=== PATIENT | male | born 1990 | race African-American/Black ===

== ENCOUNTER 2016-09-05 18:43 | Emergency (ER) | payer SELFPAY ==
[~2016-09-05] VITALS: Ht 177.8 cm; Wt 75.0 kg
[2016-09-05 18:45] VITALS: BP 113/76; PULSE 74; RESP 16; TEMP 98.2; O2SAT 98
--- NOTE | 2016-09-05 19:16 | PD ---
HPI Chief Complaint: Skin Problem Time Seen by Provider: 19:12 Travel History International Travel<30 days: No Contact w/Intl Traveler<30days: No Traveled to known affect area: No History of Present Illness HPI 26-year-old black male presents to emergency department with a laceration to his left elbow which occurred prior to arrival. He states he had slipped and cut it on a piece of glass. He is up-to-date with immunizations. Pain is minimal. He denies any numbness, tingling or focal weakness. PFSH Past Medical History Medical History: Denies Significant Hx Diminished Hearing: No Tetanus Vaccination: < 5 Years Past Surgical History Surgical History: No Previous Surgery Social History Alcohol Use: No Tobacco Use: Yes Substance Use: No Allergies-Medications (Allergen,Severity, Reaction): Coded Allergies: No Known Allergies (Verified , 09/16/13) Reported Meds & Prescriptions Reported Meds & Active Scripts Active No Active Prescriptions or Reported Medications Review of Systems Except as stated in HPI: all other systems reviewed are Neg Physical Exam Narrative GENERAL: This is a well-nourished, well-developed patient, in no apparent distress. SKIN: No rashes, ecchymoses or lesions. Warm and dry. Patient has a 2 cm laceration to the left medial elbow. This is superficial in nature. Positive venous bleeding. No foreign body. HEAD: Atraumatic. Normocephalic. EYES: PERRL, EOMI, no discharge or injection. No scleral icterus. EARS: Clear NOSE: Nasal turbinates appear normal. THROAT: Mucosa pink and moist. Airway patent. NECK: Trachea midline. supple, moves head freely. LUNGS: Clear to auscultation. CV: Regular in rhythm. ABDOMEN: Soft nontender. EXT: No clubbing cyanosis or edema. Data Data Last Documented VS Vital Signs Date Time Temp Pulse Resp B/P Pulse Ox O2 Delivery O2 Flow Rate FiO2 09/05/16 18:45 98.2 74 16 113/76 98 MDM Medical Decision Making Medical Screen Exam Complete: Yes Emergency Medical Condition: Yes Medical Record Reviewed: Yes Differential Diagnosis MDM: High Differential diagnoses: Fracture, sprain, strain, dislocation, contusion, neurovascular injury Narrative Course Patient lacerations closer sutures. Dressing applied. Procedures Procedure Narrative LACERATION LOCATION: Left medial elbow LENGTH: 2 cm NUMBER OF STITCHES/ANNIKA: Single running REPAIR: The area of the laceration was prepped with Betadine and sterilely draped. The laceration was infiltrated with 1% lidocaine with epinephrine. The wound was copiously irrigated and explored without evidence of foreign body , tendon injury or neurovascular injury. The wound was closed using 5-0 proline. This was a simple single layer repair. A sterile dressing was applied. The patient was advised to keep the dressing clean and dry. Patient tolerated the procedure well. Diagnosis Primary Impression: Laceration of right elbow Patient Instructions: General Instructions Additional Instructions: Rest. Elevation. Tylenol and Advil for pain. Daily wound care with soap, water, Neosporin. Sutures out in 10 days. Return to the ER if any problems. Med/Other Pt SpecificInfo: Wound Care Scripts No Active Prescriptions or Reported Meds Disposition: 01 DISCHARGE HOME Condition: Stable Santhosh Restrepo Sep 05, 2016 19:15
[2016-09-05] MEDS ORDERED: LIDOCAINE 1%/EPINEPHrine 1:100,000 SOLN 20 ML VIAL INFIL ONE (19:30)
== END 2016-09-05 20:10 | disposition home or self-care (01) ==
LOC: NEPD 18:43
DX: S51.012A Laceration without foreign body of left elbow, initial encounter (principal); W25.XXXA Contact with sharp glass, initial encounter
CPT/HCPCS: 12001